=== PATIENT | female | born 1970 | race Caucasian/White ===

== ENCOUNTER 2022-08-09 11:56 | Emergency (ER) | payer OTHER ==
[2022-08-09 12:04] VITALS: BP 111/69; PULSE 89; RESP 17; TEMP 98.2; BMI 36.2
== END 2022-08-09 12:55 | disposition left against medical advice (07) ==
LOC: JER 11:56
DX: R05.1 Acute cough (principal)
CPT/HCPCS: 99281-25

== ENCOUNTER 2024-01-06 12:50 | Emergency (ER) | payer OTHER ==
[2024-01-06 13:01] VITALS: BP 156/85; PULSE 85; RESP 20; TEMP 98; BMI 34.7
[2024-01-06] MEDS ORDERED: ALBUTEROL SO4 2.5/IPRATROPIUM 0.5 INH SOL 3 ML VIAL.NEB. NEB SCH (13:45)
[2024-01-06] MEDS ORDERED: ALBUTEROL SO4 2.5/IPRATROPIUM 0.5 INH SOL 3 ML VIAL.NEB. NEB ONE (14:41)
== END 2024-01-06 16:22 | disposition left against medical advice (07) ==
LOC: JER 12:50
DX: R07.89 Other chest pain (principal)
CPT/HCPCS: 71046-TC-FY; 99283-25

== ENCOUNTER 2024-07-13 13:09 | Emergency (ER) | payer OTHER ==
[2024-07-13 13:20] VITALS: BP 109/73; PULSE 94; RESP 16; TEMP 97.7; BMI 31.4
[2024-07-13] MEDS: SODIUM PHOSPHATE/NA BIPHOS 133 ML ENEMA PR ONE ×2 (15:20→15:37)
[2024-07-13] MEDS: ACETAMINOPHEN 1000 MG/100 ML BAG IVPB ONE (16:34)
== END 2024-07-13 16:35 | disposition home or self-care (01) ==
LOC: JER 13:09
DX: K59.00 Constipation, unspecified (principal); R10.13 Epigastric pain
CPT/HCPCS: 71045-TC-FY; 74019-TC-FY; 99283-25